=== PATIENT | female | born 1970 | race Caucasian/White ===

== ENCOUNTER 2024-09-27 13:58 | Emergency (ER) | payer OTHER ==
[~2024-09-27] VITALS: Ht 162.6 cm; Wt 62.8 kg
[2024-09-27 16:04] VITALS: BP 130/92; PULSE 95; RESP 12; TEMP 98; O2SAT 99
== END 2024-09-27 18:32 | disposition left against medical advice (07) ==
LOC: ER 13:59
DX: R73.9 Hyperglycemia, unspecified (principal); R35.0 Frequency of micturition; Z53.21 Procedure and treatment not carried out due to patient leaving prior to being seen by health care provider
CPT/HCPCS: 82948